=== PATIENT | female | born 1965 | race Caucasian/White ===

== ENCOUNTER → 2018-04-21 | Outpatient (CLI) | payer OTHER ==
[~2018-04-21] MED LIST: AMOXICILLIN PO; HYDROCHLOROTHIA25 MG PO; NORVASC5 MG PO; PERCOCET 5/31 TABLET PO; PRINIVIL5 MG PO; TRAMADOL HCL50 MG PO; ULTRAM50 MG PO; ZOFRAN ODT4 MG PO; ZOFRAN4 MG PO
== END | disposition home or self-care (01) ==
LOC: RES 04-07 08:00
DX: R05 Cough (principal)
CPT/HCPCS: 94070; 94726; 94729